=== PATIENT | male | born 1985 | race African-American/Black ===

== ENCOUNTER → 2017-10-01 | Outpatient (CLI) | payer OTHER ==
--- NOTE | 2017-10-01 13:14 | RAD ---
LIMITED ABDOMINAL ULTRASOUND History: Right flank pain for a few months. Comparison: None. Procedure: Transabdominal ultrasound images are obtained. Findings: Pancreas is poorly visualized. Liver is normal in echogenicity. No focal hepatic masses are identified. Right hepatic lobe measures 12.6 cm in length. Gallbladder has an unremarkable appearance. Common bile duct measures normally at 4 mm in diameter. Right kidney measures 11.3 cm in length. There is mild dilatation of the right renal collecting system. No convincing stone is seen. Visualized IVC demonstrates normal caliber. Impression: 1. No evidence of gallbladder pathology. 2. There is mild dilatation of the right renal collecting system. This could represent physiologic caliectasis. Mild obstruction could give a similar appearance. Electronically signed by: Josias Llamas MD (10/01/2017 1:10 PM) [facility]
--- NOTE | 2017-10-01 14:53 | RAD ---
KUB, 10/01/2017: HISTORY: Abdominal pain There is a moderate amount gas in large and small bowel in a nonspecific pattern. There is no evidence of organomegaly or abnormal abdominal calcification. A radiopaque paper clip projected over the right hip laterally presumably lies on the surface of the patient. There is an elongated calcific density projected along the lateral margin of the right hip joint. This probably represents an old avulsion fracture arising from the anterior inferior iliac spine at the rectus femoris insertion site. IMPRESSION: No acute abdominal abnormality is detected. Electronically signed by: Reji Swann MD (10/01/2017 2:50 PM) [facility]
== END | disposition home or self-care (01) ==
LOC: US 09:13
PROVIDERS: ATTEND Family Medicine
DX: R10.84 Generalized abdominal pain (principal)
CPT/HCPCS: 74018; 76705